=== PATIENT | male | born 2000 | race Caucasian/White ===

== ENCOUNTER 2021-02-13 13:45 | Emergency (ER) | payer OTHER ==
[~2021-02-13] VITALS: Wt 108.9 kg
[~2021-02-13 13:45] MED LIST: MOTRIN100 MG/5 M PO; NKHM
[2021-02-13 14:26] LABS: BILIRUBIN Negative (Negative); BLOOD Negative (Negative); CLARITY Clear (Clear); COLOR Yellow (Yellow); GLUCOSE Negative (Negative); KETONE Negative (Negative); LEUKO ESTERASE Negative (Negative); NITRITE Negative (Negative); PH 6.5 (4.5-8.0); SPECIFIC GRAVITY <= 1.005 (1.001-1.030); UROBILINOGEN 0.2 E.U./dl (0.0-1.0)
[2021-02-13 14:38] LABS: BACTERIA TRACE
[2021-02-13 15:39] LABS: BASO % 0.3 % (0.0-1.0); EOS # 0.1 10*3/uL (0.0-0.4); EOS % 0.6 % (1.0-4.0); HEMATOCRIT 45.8 % (42.0-52.0); LYMPH # 1.8 10*3/uL (1.3-4.4); LYMPH % 23.5 % (27.0-41.0); MEAN CELL VOLUME 89.1 fl (80.0-94.0); MEAN CORPUSCULAR HGB 29.6 pg (27.0-31.0); MEAN CORPUSCULAR HGB CONC 33.2 g/dl (33.0-37.0); MEAN PLATELET VOLUME 9.5 fl (9.6-12.3); MONO # 0.7 10*3/uL (0.1-1.0); MONO % 9.1 % (3.0-9.0); NEUT # 5.2 10*3/uL (2.3-7.9); NEUT % 65.9 % (47.0-73.0); PLATELET COUNT AUTOMATED 286 10*3/uL (130-400); RED BLOOD COUNT 5.14 10*6/uL (4.50-5.90); RED CELL DISTRI WIDTH 12.3 % (0-14.5); WHITE BLOOD COUNT 7.8 10*3/uL (4.8-10.8)
[2021-02-13 15:56] LABS: ALBUMIN 4.2 gm/dl (3.1-4.5); ALKALINE PHOSPHATASE 102 U/L (45-117); BUN 7 mg/dl (7-24); CHLORIDE 105 mmol/L (98-107); POTASSIUM 3.9 mmol/L (3.5-5.1); SGOT/AST 18 IU/L (3-35); SGPT/ALT 32 U/L (12-78); SODIUM 139 mmol/L (136-145); TOTAL PROTEIN 8.1 gm/dL (6.4-8.2)
[2021-02-13] MEDS ORDERED: PRILOSEC20 M1 PO ×2 (16:20)
== END 2021-02-13 16:22 | disposition home or self-care (01) ==
LOC: ED 13:45
PROVIDERS: Emergency Medicine
DX: K92.0 Hematemesis (principal); Z88.0 Allergy status to penicillin

== ENCOUNTER 2021-02-18 11:44 | Inpatient (IN) | payer OTHER ==
[~2021-02-18] VITALS: Ht 180.3 cm; Wt 104.4 kg
[~2021-02-18 11:44] MED LIST changes: +PRILOSEC20 M1 PO
[2021-02-18 11:50] VITALS: BP 133/82
[2021-02-18 12:13] LABS: BASO # 0.1 10*3/uL (0.0-0.1); BASO % 0.6 % (0.0-1.0); EOS # 0.1 10*3/uL (0.0-0.4); EOS % 0.7 % (1.0-4.0); HEMATOCRIT 47.3 % (42.0-52.0); LYMPH # 1.6 10*3/uL (1.3-4.4); LYMPH % 20.4 % (27.0-41.0); MEAN CELL VOLUME 88.9 fl (80.0-94.0); MEAN CORPUSCULAR HGB 29.9 pg (27.0-31.0); MEAN CORPUSCULAR HGB CONC 33.6 g/dl (33.0-37.0); MEAN PLATELET VOLUME 9.5 fl (9.6-12.3); MONO # 0.5 10*3/uL (0.1-1.0); MONO % 6.6 % (3.0-9.0); NEUT # 5.7 10*3/uL (2.3-7.9); NEUT % 70.7 % (47.0-73.0); PLATELET COUNT AUTOMATED 290 10*3/uL (130-400); RED BLOOD COUNT 5.32 10*6/uL (4.50-5.90); RED CELL DISTRI WIDTH 12.2 % (0-14.5)
[2021-02-18 12:29] LABS: ALBUMIN 4.4 gm/dl (3.1-4.5); ALKALINE PHOSPHATASE 101 U/L (45-117); BUN 9 mg/dl (7-24); CHLORIDE 104 mmol/L (98-107); CREATININE 1.06 mg/dL (0.70-1.30); LIPASE 119 U/L (73-393); POTASSIUM 4.4 mmol/L (3.5-5.1); SGOT/AST 14 IU/L (3-35); SGPT/ALT 28 U/L (12-78); SODIUM 137 mmol/L (136-145); TOTAL PROTEIN 8.4 gm/dL (6.4-8.2)
[2021-02-18 12:45] LABS: BILIRUBIN Negative (Negative); BLOOD Negative (Negative); CLARITY Clear (Clear); COLOR Yellow (Yellow); GLUCOSE Negative (Negative); KETONE Negative (Negative); LEUKO ESTERASE Negative (Negative); NITRITE Negative (Negative); PH 7.5 (4.5-8.0)
[2021-02-18 12:52] LABS: BACTERIA 1+; EPITHELIAL CELLS 0-2; RBC 0-2 rbc/hpf (0-2); WBC 0-2 wbc/hpf (0-5)
[2021-02-18 20:00] VITALS: BP 135/79
[2021-02-18] MEDS ORDERED: CITALOPRAM HYDR40 MG PO (20:23)
[2021-02-19] VITALS: BP 105/65
[2021-02-19 06:07] LABS: BASO % 0.2 % (0.0-1.0); EOS % 0.2 % (1.0-4.0); HEMATOCRIT 44.5 % (42.0-52.0); LYMPH # 1.1 10*3/uL (1.3-4.4); MEAN CELL VOLUME 89.4 fl (80.0-94.0); MEAN CORPUSCULAR HGB 29.9 pg (27.0-31.0); MEAN CORPUSCULAR HGB CONC 33.5 g/dl (33.0-37.0); MEAN PLATELET VOLUME 9.7 fl (9.6-12.3); MONO # 0.6 10*3/uL (0.1-1.0); MONO % 6.9 % (3.0-9.0); NEUT # 7.2 10*3/uL (2.3-7.9); NEUT % 79.9 % (47.0-73.0); PLATELET COUNT AUTOMATED 275 10*3/uL (130-400); RED BLOOD COUNT 4.98 10*6/uL (4.50-5.90); RED CELL DISTRI WIDTH 12.2 % (0-14.5)
[2021-02-19 06:18] LABS: BUN 16 mg/dl (7-24); CHLORIDE 109 mmol/L (98-107); CREATININE 1.03 mg/dL (0.70-1.30); SODIUM 140 mmol/L (136-145)
[2021-02-19 08:00] VITALS: BP 117/63
== END 2021-02-19 10:25 | disposition left against medical advice (07) | DRG 379 ==
LOC: ED 11:44 → EDHOLD 17:32 → 4E 18:51
PROVIDERS: Internal Medicine; Physician Assistant; ADMIT Internal Medicine; ATTEND Internal Medicine
DX: K92.0 Hematemesis (principal); F41.9 Anxiety disorder, unspecified; F32.9 Major depressive disorder, single episode, unspecified; N50.819 Testicular pain, unspecified; R39.198 Other difficulties with micturition; Z53.29 Procedure and treatment not carried out because of patient's decision for other reasons; Z88.0 Allergy status to penicillin; Z79.899 Other long term (current) drug therapy

== ENCOUNTER → 2022-03-02 | Outpatient (CLI) | payer OTHER ==
[~2022-03-02] MED LIST changes: +CITALOPRAM HYDR40 MG PO
== END | disposition home or self-care (01) ==
LOC: LAB 17:05
PROVIDERS: ATTEND Internal Medicine
DX: Z72.89 Other problems related to lifestyle (principal)

== ENCOUNTER 2022-12-29 20:01 | Emergency (ER) | payer OTHER ==
[~2022-12-29] VITALS: Ht 182.8 cm; Wt 119.7 kg
[2022-12-29 20:25] LABS: BILIRUBIN Negative (Negative); BLOOD Negative (Negative); CLARITY Clear (Clear); COLOR Dark Yellow (Yellow); GLUCOSE Negative (Negative); KETONE Negative (Negative); LEUKO ESTERASE Trace (Negative); NITRITE Positive (Negative); SPECIFIC GRAVITY <= 1.005 (1.001-1.030)
[2022-12-29 20:52] LABS: BACTERIA 1+
[2022-12-29] MEDS ORDERED: CIPRO500 MG PO (22:24)
== END 2022-12-29 20:41 | disposition home or self-care (01) ==
LOC: ED 20:01
PROVIDERS: Internal Medicine
DX: N39.0 Urinary tract infection, site not specified (principal); Z20.2 Contact with and (suspected) exposure to infections with a predominantly sexual mode of transmission; Z88.0 Allergy status to penicillin; Z79.899 Other long term (current) drug therapy

== ENCOUNTER → 2023-04-24 | Outpatient (CLI) | payer OTHER ==
[~2023-04-24] MED LIST changes: +CIPRO500 MG PO
== END | disposition home or self-care (01) ==
LOC: RAD 16:44
PROVIDERS: ATTEND Chiropractor
DX: M47.816 Spondylosis without myelopathy or radiculopathy, lumbar region (principal)

== ENCOUNTER 2023-06-20 16:01 | Emergency (ER) | payer OTHER ==
[~2023-06-20] VITALS: Ht 182.8 cm; Wt 112.5 kg
[2023-06-20 16:41] LABS: BASO # 0.1 10*3/uL (0.0-0.1); BASO % 0.6 % (0.0-1.0); EOS # 0.1 10*3/uL (0.0-0.4); EOS % 1.2 % (1.0-4.0); HEMATOCRIT 48.6 % (42.0-52.0); LYMPH # 1.7 10*3/uL (1.3-4.4); LYMPH % 20.5 % (27.0-41.0); MEAN CELL VOLUME 92.4 fl (80.0-94.0); MEAN CORPUSCULAR HGB 31.2 pg (27.0-31.0); MEAN CORPUSCULAR HGB CONC 33.7 g/dl (33.0-37.0); MEAN PLATELET VOLUME 9.4 fl (9.6-12.3); MONO # 0.8 10*3/uL (0.1-1.0); MONO % 9.2 % (3.0-9.0); NEUT # 5.7 10*3/uL (2.3-7.9); NEUT % 67.4 % (47.0-73.0); PLATELET COUNT AUTOMATED 300 10*3/uL (130-400); RED BLOOD COUNT 5.26 10*6/uL (4.50-5.90); RED CELL DISTRI WIDTH 11.7 % (0-14.5); WHITE BLOOD COUNT 8.5 10*3/uL (4.8-10.8)
[2023-06-20 17:11] LABS: ALKALINE PHOSPHATASE 105 U/L (46-116); BUN 12 mg/dl (9-23); CHLORIDE 102 mmol/L (98-107); POTASSIUM 3.6 mmol/L (3.4-5.1); SGPT/ALT 114 U/L (5-49); TOTAL PROTEIN 8.4 gm/dL (6.0-8.0)
== END 2023-06-20 19:57 | disposition home or self-care (01) ==
LOC: ED 16:01
PROVIDERS: Physician Assistant Medical
DX: R07.89 Other chest pain (principal); F41.9 Anxiety disorder, unspecified; F90.9 Attention-deficit hyperactivity disorder, unspecified type; Z88.0 Allergy status to penicillin

== ENCOUNTER 2024-10-14 17:34 | Emergency (ER) | payer BC ==
[~2024-10-14] VITALS: Ht 182.8 cm; Wt 117.9 kg
[2024-10-14] MEDS ORDERED: CEPHALEXIN 500 MG CAP PO ONE (18:40)
[2024-10-14] MEDS ORDERED: Doxycycline Hyclate 100 MG CAPSULE PO ONE (18:40)
[2024-10-14] MEDS ORDERED: VIBRAMYCIN100 MG PO (18:51)
[2024-10-14] MEDS ORDERED: CEPHALEXIN500 M1 PO (18:51)
== END 2024-10-14 19:11 | disposition home or self-care (01) ==
LOC: ED 17:34
DX: L02.413 Cutaneous abscess of right upper limb (principal); L03.113 Cellulitis of right upper limb; Z88.0 Allergy status to penicillin